=== PATIENT | female | born 2000 | race Caucasian/White ===

== ENCOUNTER 2020-11-06 19:03 | Emergency (ER) | payer SELFPAY ==
--- NOTE | 2020-11-06 19:36 | EDM.PDOC ---
ED HPI GENERAL MEDICAL PROBLEM - General Chief Complaint: Genitourinary Problem Stated Complaint: SENT BY [facility]/KIDNEY INFECTION Time Seen by Provider: 11/06/20 19:14 Source of Information: Reports: Patient History Limitations: Reports: No Limitations, Other (ED vital signs reveal a temp of 98.8, pulse of 101, respiratory rate 18, blood pressure 168/77, pulse ox 97% on room air) - History of Present Illness INITIAL COMMENTS - FREE TEXT/NARRATIVE: 20-year-old female presents to the emergency department this evening with complaints of a urinary tract infection. Patient developed a fever and chills 4 days ago. She states she also developed nausea and vomited twice over the past 4 days. She states she went to [facility] yesterday and was diagnosed with UTI. She was given an IM dose of Rocephin and then started on Cipro oral antibiotics. She was told that she should feel better within 24 hours. However, the patient states that she still had a fever today and was not feeling better so she followed up with [facility] and they told her to come to the emergency department to be evaluated. - Related Data Allergies Allergy/AdvReac Type Severity Reaction Status Date / Time No Known Allergies Allergy Verified 11/06/20 19:16 Past Medical History - Past Health History Medical/Surgical History: Denies Medical/Surgical History Social & Family History - Tobacco Use Tobacco Use Status *Q: Current Every Day Tobacco User Years of Tobacco use: 3 Packs/Tins Daily: 0 - Recreational Drug Use Recreational Drug Use: No ED ROS GENERAL - Review of Systems Review Of Systems: See Below Constitutional: Reports: Fever, Chills. Denies: Decreased Appetite HEENT: Reports: No Symptoms Respiratory: Reports: No Symptoms Cardiovascular: Reports: No Symptoms Endocrine: Reports: No Symptoms GI/Abdominal: Reports: Abdominal Pain (Prepubic tenderness), Nausea (4 days ago), Vomiting (4 days ago). Denies: Constipation, Diarrhea : Reports: No Symptoms Musculoskeletal: Reports: No Symptoms Skin: Reports: No Symptoms Neurological: Reports: No Symptoms Psychiatric: Reports: No Symptoms Hematologic/Lymphatic: Reports: No Symptoms Immunologic: Reports: No Symptoms ED EXAM, RENAL/ - Physical Exam Exam: See Below Exam Limited By: No Limitations General Appearance: Alert, WD/WN, Mild Distress Ears: Normal External Exam, Hearing Grossly Normal Nose: Normal Inspection Throat/Mouth: Normal Inspection, Normal Lips, Normal Voice, No Airway Compromise Head: Atraumatic Neck: Normal Inspection Respiratory/Chest: No Respiratory Distress, Lungs Clear, Normal Breath Sounds, No Accessory Muscle Use, Chest Non-Tender Cardiovascular: Normal Peripheral Pulses, Regular Rate, Rhythm, No Edema, No Murmur GI/Abdominal: Normal Bowel Sounds, Soft, No Distention, Tender (Suprapubic) (Female) Exam: Deferred Rectal (Female) Exam: Deferred Back Exam: Normal Inspection Extremities: Normal Inspection Neurological: Alert, Oriented, Normal Cognition Psychiatric: Normal Affect, Normal Mood Skin Exam: Warm, Dry, Intact, Normal Color, No Rash Lymphatic: No Adenopathy Course - Vital Signs Text/Narrative:: Patient seen after being diagnosed with a UTI yesterday at [facility]. Cultures are pending per the clinic notes. Patient was given a shot of IM Rocephin and started on Cipro oral antibiotics. She states that she still had a fever today and is not feeling better so she followed up with [facility] and they advised her to come to the emergency department. At this time I am not going to repeat the urinalysis as patient had this done and cultures are pending from [facility]. She has already been started on a antibiotic regimen as well. I have ordered labs on this patient. She is afebrile at the time of ED triage assessment. Last Recorded V/S: Last Vital Signs Temp 98.8 F 11/06/20 19:12 Pulse 101 H 11/06/20 19:12 Resp 18 11/06/20 19:12 BP 116/77 11/06/20 19:12 Pulse Ox 97 11/06/20 19:12 - Orders/Labs/Meds Labs: Laboratory Tests 11/06/20 11/06/20 Range/Units 19:37 19:37 WBC 8.05 (3.98-10.04) K/mm3 RBC 4.68 (3.98-5.22) M/mm3 Hgb 12.3 (11.2-15.7) gm/dl Hct 36.9 (34.1-44.9) % MCV 78.8 L (79.4-94.8) fl MCH 26.3 (25.6-32.2) pg MCHC 33.3 (32.2-35.5) g/dl RDW Std Deviation 36.6 (36.4-46.3) fL Plt Count 286 (182-369) K/mm3 MPV 9.2 L (9.4-12.3) fl Neut % (Auto) 67.6 (34.0-71.1) % Lymph % (Auto) 19.9 (19.3-51.7) % Schuyler % (Auto) 11.2 (4.7-12.5) % Eos % (Auto) 1.0 (0.7-5.8) Baso % (Auto) 0.2 (0.1-1.2) % Neut # (Auto) 5.44 (1.56-6.13) K/mm3 Lymph # (Auto) 1.60 (1.18-3.74) K/mm3 Schuyler # (Auto) 0.90 H (0.24-0.36) K/mm3 Eos # (Auto) 0.08 (0.04-0.36) K/mm3 Baso # (Auto) 0.02 (0.01-0.08) K/mm3 Manual Slide Review Normal smear Sodium 135 L (136-145) mEq/L Potassium 3.0 L (3.5-5.1) mEq/L Chloride 99 (98-107) mEq/L Carbon Dioxide 24 (21-32) mEq/L Anion Gap 15.0 (5-15) BUN 10 (7-18) mg/dL Creatinine 0.8 (0.55-1.02) mg/dL Est Cr Clr Drug Dosing 120.29 mL/min Estimated GFR (MDRD) > 60 (>60) mL/min BUN/Creatinine Ratio 12.5 L (14-18) Glucose 103 (74-106) mg/dL Calcium 8.8 (8.5-10.1) mg/dL Total Bilirubin 0.5 (0.2-1.0) mg/dL AST 29 (15-37) U/L ALT 44 (14-59) U/L Alkaline Phosphatase 145 H (46-116) U/L C-Reactive Protein 26.5 H* (<1.0) mg/dL Total Protein 8.0 (6.4-8.2) g/dl Albumin 3.1 L (3.4-5.0) g/dl Globulin 4.9 gm/dL Albumin/Globulin Ratio 0.6 L (1-2) Meds: Medications Discontinued Medications Generic Name Dose Route Start Last Admin Trade Name Sheldon PRN Reason Stop Dose Admin Potassium Chloride 40 meq 11/06/20 20:31 11/06/20 20:38 Potassium Chloride 20 Meq Tab.Er PO 11/06/20 20:32 40 meq ONETIME ONE Administration - Re-Assessments/Exams Free Text/Narrative Re-Assessment/Exam: 11/06/20 20:42 Hematology reveals a WBC of 8.05, hemoglobin 12.3, hematocrit 36.9, platelet count 286 Chemistry reveals a sodium of 135, potassium 3.0, anion gap 15.0, BUN 10, creatinine 0.8, glucose 103, AST 29, ALT 44, alk phos 145, C-reactive protein 26.5 Patient was given 40 liborio-equivalents of potassium p.o. She will be discharged home. Education was completed regarding the fact that she likely will not feel better for 48 to 72 hours after starting antibiotic regimen. Patient was also given strict return precautions. Patient also encouraged to eat potassium rich foods and drink Gatorade while she is not fe eling well. Departure - Departure Time of Disposition: 20:44 Disposition: Home, Self-Care 01 Condition: Good Clinical Impression: UTI, Urinary tract infectious disease - Discharge Information Instructions: Urinary Tract Infection, Adult, [id number] Referrals: PCP,None [Primary Care Provider] - Forms: ED Department Discharge Additional Instructions: You were seen in the emergency department today with complaints of fever related to urinary tract infection. You had been seen at [facility] and a urine sample was completed and urine culture is pending. You were given a shot of antibiotic and started on oral antibiotics. As we discussed, this likely will take 48 to 72 hours for you to start feeling better. Continue taking your antibiotic as prescribed. May take Tylenol 650 mg every 4 hours or ibuprofen 600 mg every 6-8 hours as needed for discomfort. Go home and rest, drink plenty of fluids. Should your condition worsen or change, or you start having vomiting or flank pain, do not hesitate returning to the emergency department. Sepsis Event Note (ED) - Evaluation Sepsis Screening Result: No Definite Risk - Focused Exam Vital Signs: Vital Signs Temp Pulse Resp BP Pulse Ox 11/06/20 19:12 98.8 F 101 H 18 116/77 97
[2020-11-06] MEDS ORDERED: Potassium Chloride 20 MEQ Tab.ER PO ONE (20:31)
== END 2020-11-06 20:53 | disposition home or self-care (01) ==
LOC: JD.ED 19:03
DX: N39.0 Urinary tract infection, site not specified (principal); Z72.0 Tobacco use
CPT/HCPCS: 36415; 80053; 85025; 86140; 99284; A9270; 99283